=== PATIENT | male | born 1955 | race Caucasian/White ===

== ENCOUNTER 2017-12-29 13:42 | Outpatient (CLI) | payer MEDICARE, MEDICAID ==
[~2017-12-29 13:42] MED LIST: ALLOPURINOL100 M1 ORAL; ASPIRIN-LOW81 MG ORAL; BACLOFEN10 MG ORAL; CELEBREX50 M1 ORAL; DIOVAN HCT 1601 EACH ORAL; FLOMAX0.4 MG ORAL; FLONASE1 SPRAYS NASAL; NAPROSYN125 MG/5 M PO; OMEPRAZOLE20 M2 ORAL; TRAMADOL HCL E100 MG ORAL; TRAMADOL HCL50 MG ORAL; VESICARE10 MG ORAL; [UNRECOGNIZED DRUG - OTHER]
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
== END 2017-12-29 14:15 | disposition home or self-care (01) ==
LOC: PAN 13:42
DX: R19.7 Diarrhea, unspecified (principal); E66.9 Obesity, unspecified; Z68.39 Body mass index [BMI] 39.0-39.9, adult; Z79.82 Long term (current) use of aspirin; Z88.6 Allergy status to analgesic agent; I10 Essential (primary) hypertension; K21.9 Gastro-esophageal reflux disease without esophagitis; M51.36 Other intervertebral disc degeneration, lumbar region; M47.9 Spondylosis, unspecified
CPT/HCPCS: 99202

== ENCOUNTER 2018-01-31 09:35 | Outpatient (CLI) | payer MEDICARE, MEDICAID ==
[2018-01-31 10:12] VITALS: BP 130/87
[2018-01-31] MEDS ORDERED: NEW BP MED (10:14)
--- NOTE | 2018-01-31 10:59 | GI Progress Note ---
Assessment/Plan Problems: (1) IBS (irritable bowel syndrome) ICD Codes: K58.9 - Irritable bowel syndrome without diarrhea SNOMED: 84951448 (2) Diarrhea ICD Codes: R19.7 - Diarrhea, unspecified SNOMED: 48615794 (3) Obesity (BMI 30-39.9) ICD Codes: E66.9 - Obesity (BMI 30-39.9) SNOMED: 389483557 Status: stable Status Narrative Seen with Dr. Valdez. Assessment/Plan Increase Viberzi from daily to 100mg BID RTC x 1 month The patient was seen and examined at bedside and all new and available data was reviewed in the patients chart. I agree with the above findings, impression and plan. (Patient seen earlier today. Signature stamp does not reflect patient encounter time.). - Rashawn Valdez MD Subjective Subjective diarrhea, loose stool x 1 day taking Viberzi daily, no Imodium Objective Last 24 Hour Vital Signs Date Time Temp Pulse Resp B/P (MAP) Pulse Ox O2 Delivery O2 Flow Rate FiO2 01/31/18 10:12 98.0 87 22 130/87 93 98.0 General Appearance: WD/WN, no apparent distress, alert Cardiovascular: normal rate Respiratory/Chest: normal breath sounds, no respiratory distress Abdominal Exam: normal bowel sounds, non tender, soft Extremities: normal range of motion, non-tender Sybil Reveles [employer]T PERFORMER Jan 31, 2018 10:59
== END 2018-01-31 10:07 | disposition home or self-care (01) ==
LOC: PAN 09:35
DX: K58.9 Irritable bowel syndrome, unspecified (principal); R19.7 Diarrhea, unspecified; E66.9 Obesity, unspecified
CPT/HCPCS: 99212

== ENCOUNTER 2018-05-25 14:19 | Outpatient (CLI) | payer MEDICARE, MEDICAID ==
[~2018-05-25 14:19] MED LIST changes: +NEW BP MED
[2018-05-25 14:38] VITALS: BP 119/78
--- NOTE | 2018-05-26 15:16 | GI Progress Note ---
Assessment/Plan Problems: (1) IBS (irritable bowel syndrome) ICD Codes: K58.9 - Irritable bowel syndrome without diarrhea SNOMED: 72234549 (2) Diarrhea ICD Codes: R19.7 - Diarrhea, unspecified SNOMED: 59352064 (3) Chronic NSAIDS use (4) GERD (gastroesophageal reflux disease) ICD Codes: K21.9 - GERD (gastroesophageal reflux disease) SNOMED: 921473360 Status: stable Status Narrative Seen with Dr. Valdez. Assessment/Plan cont Viberzi RTC x 3 months repeat colonoscopy 2019. The patient was seen and examined at bedside and all new and available data was reviewed in the patients chart. I agree with the above findings, impression and plan. (Patient seen earlier today. Signature stamp does not reflect patient encounter time.). - Rashawn Valdez MD Subjective Subjective constipation vs diarrhea >> has regular BM, on Viberzi 100mg x2/day Objective T 97.8 BP 119/78 P 87 95 RA General Appearance: WD/WN, no apparent distress, alert Cardiovascular: normal rate Respiratory/Chest: normal breath sounds, no respiratory distress Abdominal Exam: normal bowel sounds, non tender, soft Extremities: normal range of motion, non-tender Sybil Reveles NOTEMAN May 26, 2018 15:16
== END 2018-05-25 14:49 | disposition home or self-care (01) ==
LOC: PAN 14:19
DX: K58.9 Irritable bowel syndrome, unspecified (principal); R19.7 Diarrhea, unspecified; K21.9 Gastro-esophageal reflux disease without esophagitis; Z79.1 Long term (current) use of non-steroidal anti-inflammatories (NSAID)
CPT/HCPCS: 99212

== ENCOUNTER 2019-04-09 13:13 | Outpatient (CLI) | payer MEDICARE, MEDICAID ==
--- NOTE | 2019-04-09 13:33 | General Progress Note ---
Assessment/Plan Problem List: (1) Chronic NSAIDS use (2) IBS (irritable bowel syndrome) ICD Codes: K58.9 - Irritable bowel syndrome without diarrhea SNOMED: 11154872 (3) GERD (gastroesophageal reflux disease) ICD Codes: K21.9 - GERD (gastroesophageal reflux disease) SNOMED: 897451319 (4) Diarrhea ICD Codes: R19.7 - Diarrhea, unspecified SNOMED: 91385409 (5) Obesity (BMI 30-39.9) ICD Codes: E66.9 - Obesity (BMI 30-39.9) SNOMED: 365299686 (6) HTN (hypertension) ICD Codes: I10 - HTN (hypertension) SNOMED: 56023022 (7) Gout ICD Codes: M10.9 - Gout SNOMED: 85955652 Assessment/Plan: refill viberzi plan repeat colonoscopy in Jul 2019 Subjective ROS Limited/Unobtainable: Yes Allergies: Coded Allergies: CODEINE (Unverified Allergy, Mild, 07/02/14) ANXIETY Objective General Appearance: alert EENT: normal ENT inspection Neck: supple Cardiovascular: normal rate Respiratory/Chest: lungs clear Abdomen: normal bowel sounds, non tender, soft Extremities: non-tender Rashawn Valdez MD Apr 09, 2019 13:33
[2019-04-09] MEDS ORDERED: LOSARTAN POTASS25 MG ORAL (15:42)
[2019-04-09] MEDS ORDERED: AMLODIPINE BESYL5 MG ORAL (15:42)
[2019-04-09] MEDS ORDERED: VITAMIN B COMP1 EAC2 ORAL (15:42)
[2019-04-09] MEDS ORDERED: VITAMIN C500 M1 ORAL (15:42)
[2019-04-09] MEDS ORDERED: OMEPRAZOLE40 M1 ORAL (15:42)
[2019-04-09] MEDS ORDERED: VITAMIN B122500 MCG PO (15:42)
[2019-04-09] MEDS ORDERED: ABILIFY15 MG ORAL (15:42)
[2019-04-09] MEDS ORDERED: VITAMIN D1000 UNI1 ORAL (15:42)
[2019-04-09] MEDS ORDERED: OLANZAPINE ODT10 MG PO (15:42)
[2019-04-09] MEDS ORDERED: CYMBALTA60 MG ORAL (15:42)
[2019-04-09] MEDS ORDERED: GEMFIBROZIL600 MG ORAL (15:42)
[2019-04-09] MEDS ORDERED: CRESTOR10 M2 ORAL (15:42)
[2019-04-09] MEDS ORDERED: METFORMIN HCL1000 M1 ORAL (15:42)
[2019-04-09 15:44] VITALS: BP 120/77
[2019-04-09] MEDS ORDERED: VIBERZI100 MG PO (15:44)
== END 2019-04-09 15:47 | disposition home or self-care (01) ==
LOC: PAN 13:13
DX: K58.9 Irritable bowel syndrome, unspecified (principal); K21.9 Gastro-esophageal reflux disease without esophagitis; R19.7 Diarrhea, unspecified; E66.9 Obesity, unspecified; I10 Essential (primary) hypertension; M10.9 Gout, unspecified; Z88.6 Allergy status to analgesic agent; Z79.1 Long term (current) use of non-steroidal anti-inflammatories (NSAID)

== ENCOUNTER 2019-09-10 10:26 | Day surgery (SDC) | payer MEDICARE, MEDICAID ==
[~2019-09-10] VITALS: Ht 182.9 cm; Wt 119.7 kg
--- NOTE | 2019-09-10 10:23 | Anethesia Preoperative Eval ---
Anesthesia Pre-op PMH/ROS General Date of Evaluation: Sep 10, 2019 Anesthesiologist: Myles ASA Score: ASA 3 Mallampati Score Class I : Soft palate, uvula, fauces, pillars visible Class II: Soft palate, uvula, fauces visible Class III: Soft palate, base of uvula visible Class IV: Only hard plate visible Mallampati Classification: Class III Surgeon: Courtney Diagnosis: screening Surgical Procedure: colonoscopy Anesthesia History: none Family History: no anesthesia problems Allergies: Coded Allergies: CODEINE (Unverified Allergy, Mild, 07/02/14) ANXIETY Medications: see eMAR Patient NPO?: Yes NPO Date: Sep 10, 2019 NPO Time: 00:00 Past Medical History Cardiovascular: Reports: HTN; Denies: CAD, RI, valve dz, arrhythmia, other Pulmonary: Reports: MANDIE - uses CPAP at home; Denies: asthma, COPD, other Gastrointestinal/Genitourinary: Reports: GERD; Denies: CRI, ESRD, other Neurologic/Psychiatric: Reports: depression/anxiety; Denies: dementia, CVA, TIA, other Endocrine: Denies: DM, hypothyroidism, steroids, other HEENT: Denies: cataract (L), cataract (R), glaucoma, [place] (L), [place] (R), other Hematology/Immune: Reports: DVT; Denies: anemia, bleeding disorder, other Musculoskeletal/Integumentary: Reports: DJD, other - gout, lbp; Denies: OA, RA, DDD, edema Other: obesity PSxH Narrative: T&A, tib-fib sx Anesthesia Pre-op Phys. Exam Physician Exam see chart Constitutional: NAD Cardiovascular: RRR Respiratory: CTA Airway Exam Mallampati Score: Class II MO: full ROM: full Anesthesia Pre-op A/P Labs see chart Studies Pre-op Studies: EKG - sr wsith 1st degree av block Risk Assessment & Plan Assessment: asa III Plan: MAC Status Change Before Surgery: No Pre-Antibiotics Drug: N/A Yamileth Lbelanc MD Sep 10, 2019 10:23
[~2019-09-10 10:26] MED LIST changes: +ABILIFY15 MG ORAL; +AMLODIPINE BESYL5 MG ORAL; +CRESTOR10 M2 ORAL; +CYMBALTA60 MG ORAL; +GEMFIBROZIL600 MG ORAL; +LOSARTAN POTASS25 MG ORAL; +LR 1000ml 1,000 ML IVLG SCH; +METFORMIN HCL1000 M1 ORAL; +OLANZAPINE ODT10 MG PO; +OMEPRAZOLE40 M1 ORAL; +VIBERZI100 MG PO; +VITAMIN B COMP1 EAC2 ORAL; +VITAMIN B122500 MCG PO; +VITAMIN C500 M1 ORAL; +VITAMIN D1000 UNI1 ORAL
[2019-09-10] MEDS ORDERED: LR 1000ml 1,000 ML IVLG SCH (10:36)
[2019-09-10] MEDS ORDERED: DiphenhydrAMINE 50mg/ml Inj IVP PRN (10:45)
[2019-09-10 12:26] VITALS: BP 146/80
--- NOTE | 2019-09-10 12:42 | Pre-Procedure Note/Attestation ---
Pre-Procedure Note/Attestation Complete Prior to Procedure Planned Procedure: not applicable Procedure Narrative: colonoscopy Indications for Procedure Pre-Operative Diagnosis: screening Attestation I attest that I discussed the nature of the procedure; its benefits; risks and complications; and alternatives (and the risks and benefits of such alternatives ), prior to the procedure, with the patient (or the patient's legal operations representative). I attest that, if there was a reasonable possibility of needing a blood transfusion, the patient (or the patient's legal operations representative) was given the [facility] standardized written summary, pursuant to the [place]om[place] Blood Safety Act ([place] Health and Safety Code # 1645, as amended). I attest that I re-evaluated the patient just prior to the surgery and that there has been no change in the patient's H&P, except as documented below: Rashawn Valdez MD Sep 10, 2019 12:42
--- NOTE | 2019-09-10 12:43 | Short Stay Surgery H&P ---
History of Present Illness History of Present Illness Chief Complaint screening colon HPI Fausto Mathews is a 64 year old male who was admitted on for Screening Colon Patient History Allergies: Coded Allergies: CODEINE (Unverified Allergy, Mild, 07/02/14) ANXIETY PAST MEDICAL HISTORY: (1) Chronic NSAIDS use (2) Obesity (BMI 30-39.9) (3) IBS (irritable bowel syndrome) (4) HTN (hypertension) (5) GERD (gastroesophageal reflux disease) (6) Diarrhea (7) Gout (8) Lumbar disc disease (9) Gastritis Medication History Scheduled Allopurinol* (Allopurinol*), 100 MG ORAL DAILY, (Reported) Amlodipine Besylate* (Amlodipine Besylate*), 5 MG ORAL DAILY, (Reported) Aripiprazole* (Abilify*), 30 MG ORAL DAILY, (Reported) Ascorbic Acid* (Vitamin C*), 500 MG ORAL DAILY, (Reported) Aspirin (Aspirin EC), 81 MG ORAL DAILY, (Reported) Cholecalciferol (Vitamin D3)* (Vitamin D*), 1,000 UNIT ORAL DAILY, (Reported) Cyanocobalamin (Vitamin B-12) (Vitamin B12), 2,500 MCG PO DAILY, (Reported) Duloxetine Hcl* (Cymbalta*), 60 MG ORAL DAILY, (Reported) Eluxadoline (Viberzi), 100 MG PO BID, (Reported) Fluticasone Propionate (Fluticasone Propionate), 2 SPRAYS NASAL DAILY, (Reported ) Gemfibrozil (Gemfibrozil*), 600 MG ORAL BID, (Reported) Losartan Potassium* (Losartan Potassium*), 25 MG ORAL DAILY, (Reported) Metformin Hcl* (Metformin Hcl*), 1,000 MG ORAL BID, (Reported) Olanzapine (Olanzapine Odt), 10 MG PO QHS, (Reported) Omeprazole (Omeprazole), 40 MG ORAL DAILY, (Reported) Rosuvastatin Calcium* (Crestor*), 10 MG ORAL DAILY, (Reported) Solifenacin Succinate (Vesicare*), 10 MG ORAL DAILY, (Reported) Tamsulosin HCl (Flomax), 0.4 MG ORAL DAILY, (Reported) Vitamin B Complex (Vitamin B Complex), 1 CAP ORAL DAILY, (Reported) Review of Systems Cardiovascular: Reports: no symptoms Respiratory: Reports: no symptoms Skeletal: Reports: no symptoms Gastrointestinal: Reports: no symptoms Genitourinary: Reports: no symptoms Neurologic: Reports: no symptoms Endocrine: Reports: no symptoms Physical Exam Vital Signs Last Vital Signs Date Time Temp Pulse Resp B/P (MAP) Pulse Ox O2 Delivery O2 Flow Rate FiO2 09/10/19 12:29 Room Air 09/10/19 12:26 97.7 63 18 146/80 96 Skin: normal HENT: normal Heart: normal Lungs: normal Abdomen: normal Extremities: normal Plan Plan of Care colonoscopy Attestation Are the patient's medical conditions optimized for surgery? Attestation Response: yes Rashawn Valdez MD Sep 10, 2019 12:43
--- NOTE | 2019-09-10 12:43 | Short Stay Surgery H&P ---
History of Present Illness History of Present Illness Chief Complaint see recent office note HPI Fausto Mathews is a 64 year old male who was admitted on for Screening Colon Patient History Allergies: Coded Allergies: CODEINE (Unverified Allergy, Mild, 07/02/14) ANXIETY Medication History Scheduled Allopurinol* (Allopurinol*), 100 MG ORAL DAILY, (Reported) Amlodipine Besylate* (Amlodipine Besylate*), 5 MG ORAL DAILY, (Reported) Aripiprazole* (Abilify*), 30 MG ORAL DAILY, (Reported) Ascorbic Acid* (Vitamin C*), 500 MG ORAL DAILY, (Reported) Aspirin (Aspirin EC), 81 MG ORAL DAILY, (Reported) Cholecalciferol (Vitamin D3)* (Vitamin D*), 1,000 UNIT ORAL DAILY, (Reported) Cyanocobalamin (Vitamin B-12) (Vitamin B12), 2,500 MCG PO DAILY, (Reported) Duloxetine Hcl* (Cymbalta*), 60 MG ORAL DAILY, (Reported) Eluxadoline (Viberzi), 100 MG PO BID, (Reported) Fluticasone Propionate (Fluticasone Propionate), 2 SPRAYS NASAL DAILY, (Reported ) Gemfibrozil (Gemfibrozil*), 600 MG ORAL BID, (Reported) Losartan Potassium* (Losartan Potassium*), 25 MG ORAL DAILY, (Reported) Metformin Hcl* (Metformin Hcl*), 1,000 MG ORAL BID, (Reported) Olanzapine (Olanzapine Odt), 10 MG PO QHS, (Reported) Omeprazole (Omeprazole), 40 MG ORAL DAILY, (Reported) Rosuvastatin Calcium* (Crestor*), 10 MG ORAL DAILY, (Reported) Solifenacin Succinate (Vesicare*), 10 MG ORAL DAILY, (Reported) Tamsulosin HCl (Flomax), 0.4 MG ORAL DAILY, (Reported) Vitamin B Complex (Vitamin B Complex), 1 CAP ORAL DAILY, (Reported) Physical Exam Vital Signs Last Vital Signs Date Time Temp Pulse Resp B/P (MAP) Pulse Ox O2 Delivery O2 Flow Rate FiO2 09/10/19 12:29 Room Air 09/10/19 12:26 97.7 63 18 146/80 96 Plan Attestation Are the patient's medical conditions optimized for surgery? Rashawn Valdez MD Sep 10, 2019 12:43
[2019-09-10] MEDS ORDERED: LR 1000ml ONE (13:00)
[2019-09-10] MEDS ORDERED: Lidocaine 1% MPF 10mg/ml 5ml ONE (13:00)
[2019-09-10] MEDS ORDERED: Propofol 200mg/20ml IV ONE (13:00)
--- NOTE | 2019-09-10 13:10 | Endoscopy Procedure Note ---
Endoscopy Procedure Note General Indication for Procedure: screening Procedures Performed: colonoscopy Operative Findings/Diagnosis: hemorrhoids Specimen: yes Pt Tolerated Procedure Well: Yes Estimated Blood Loss: none Anesthesia Anesthesiologist: nae Anesthesia: MAC Inserted Devices Implant(s) used?: No Quality Quality of Bowel Preparation: Good Did scope reach the cecum?: Yes Was there any complications?: No GI Core Measures 50 yrs or older w/o bx or poly: No 10yrs. F/U recommended: Yes If not recommended, why?: Above average risk 18 years or older w/prev. colo: Yes <3yrs. since last colonoscopy: No Rashawn Valdez MD Sep 10, 2019 13:10
[2019-09-10 13:30] VITALS: BP 134/90
--- NOTE | 2019-09-10 13:34 | Immediate Post-Op Evaluation ---
Immediate Post-Op Evalulation Immediate Post-Op Evalulation Procedure: colonoscopy Date of Evaluation: Sep 10, 2019 Time of Evaluation: 13:35 IV Fluids: 300 Blood Products: 0 Estimated Blood Loss: 0 Urinary Output: 0 Blood Pressure Systolic: 134 Blood Pressure Diastolic: 90 Pulse Rate: 73 Respiratory Rate: 16 O2 Sat by Pulse Oximetry: 98 Temperature (Fahrenheit): 97.8 Pain Score (1-10): 0 Nausea: No Vomiting: No Complications 0 Patient Status: awake, reacts, patent, none Hydration Status: adequate Drug: N/A Yamileth Leblanc MD Sep 10, 2019 13:34
[2019-09-10 13:35] VITALS: BP 134/82
--- NOTE | 2019-09-10 13:35 | 48 Hour Post Anesthesia Eval ---
Post Anesthesia Evaluation Procedure: colonoscopy Date of Evaluation: Sep 10, 2019 Airway: patent Nausea: No Vomiting: No Pain Intensity: 0 Hydration Status: adequate Cardiopulmonary Status: at baseline Mental Status/LOC: patient returned to baseline Post-Anesthesia Complications: 0 Follow-up care needed: ready to discharge Yamileth Leblanc MD Sep 10, 2019 13:35
[2019-09-10 13:40] VITALS: BP 133/84
[2019-09-10 13:45] VITALS: BP 128/84
[2019-09-10 14:20] VITALS: BP_SYST 140; BP_SYST 147; BP_DIAS 87; BP_DIAS 92
--- NOTE | 2019-09-10 16:00 | Procedure Note ---
DATE OF PROCEDURE: 09/10/2019 SURGEON: Rashawn Valdez M.D. PROCEDURE: Colonoscopy. ANESTHESIA: Per Dr. Bueno. INSTRUMENT: Olympus adult flexible colonoscope. INDICATION: History of colonic polyps, referred for repeat colonoscopy. REASON FOR PROCEDURE: The procedure, risks, benefits, and possible consequences, including hemorrhage, aspiration, perforation and infection, and alternative treatments, were explained to the patient/legal guardian by Dr. Rashawn Valdez and the patient/legal guardian understood and accepted these risks. DESCRIPTION OF PROCEDURE: After informed consent was obtained and the patient was adequately sedated, first rectal exam was performed, which was normal. Then, the scope was advanced from the rectum into the cecum documented by appendiceal orifice, ileocecal valve, and right upper quadrant on palpation. Quality of her was okay except for the cecum, which was covered with the stool, so examination of cecum was limited. We did not see any obvious polyp in this examination. The patient had evidence of redundant sigmoid colon. No obvious mass, diverticulosis, or any pathology seen. Retroflexion of rectum showed evidence of internal hemorrhoids. SUMMARY OF FINDINGS: 1. Good colonoscopy prep except for the cecum. 2. No obvious polyp seen in this colonoscopy examination. 3. Internal hemorrhoids. 4. Redundant sigmoid colon. RECOMMENDATIONS: Recommend repeat colonoscopy in 5 years. Rashawn Valdez M.D. DR: EDI JOB#: [id number] CC:
== END 2019-09-10 14:20 | disposition home or self-care (01) ==
LOC: GAS 10:26
DX: Z12.11 Encounter for screening for malignant neoplasm of colon (principal); I10 Essential (primary) hypertension; K21.9 Gastro-esophageal reflux disease without esophagitis; M51.36 Other intervertebral disc degeneration, lumbar region; Z79.82 Long term (current) use of aspirin; Z79.899 Other long term (current) drug therapy; Z88.6 Allergy status to analgesic agent; Z79.84 Long term (current) use of oral hypoglycemic drugs; G47.33 Obstructive sleep apnea (adult) (pediatric); F32.9 Major depressive disorder, single episode, unspecified; F41.9 Anxiety disorder, unspecified; E66.9 Obesity, unspecified; I44.0 Atrioventricular block, first degree
CPT/HCPCS: 82962; 93005; G0121; J2704; J7120; 94003; 94150

== ENCOUNTER 2019-09-26 14:25 | Outpatient (CLI) | payer MEDICARE, MEDICAID ==
[~2019-09-26 14:25] MED LIST changes: -LR 1000ml 1,000 ML IVLG SCH
--- NOTE | 2019-09-26 14:51 | General Progress Note ---
Assessment/Plan Problem List: (1) Chronic NSAIDS use (2) Obesity (BMI 30-39.9) ICD Codes: E66.9 - Obesity (BMI 30-39.9) SNOMED: 744195635 (3) IBS (irritable bowel syndrome) ICD Codes: K58.9 - Irritable bowel syndrome without diarrhea SNOMED: 91115122 (4) HTN (hypertension) ICD Codes: I10 - HTN (hypertension) SNOMED: 51435758 (5) GERD (gastroesophageal reflux disease) ICD Codes: K21.9 - GERD (gastroesophageal reflux disease) SNOMED: 926607848 (6) Gastritis ICD Codes: K29.70 - Gastritis SNOMED: 4156028 (7) Diarrhea ICD Codes: R19.7 - Diarrhea, unspecified SNOMED: 44865470 (8) Gout ICD Codes: M10.9 - Gout SNOMED: 00597484 (9) Internal hemorrhoids ICD Codes: K64.8 - Internal hemorrhoids SNOMED: 81738934 Assessment/Plan: SUMMARY OF FINDINGS: 1. Good colonoscopy prep except for the cecum. 2. No obvious polyp seen in this colonoscopy examination. 3. Internal hemorrhoids. 4. Redundant sigmoid colon. cont viberzi QOD Subjective ROS Limited/Unobtainable: Yes Allergies: Coded Allergies: CODEINE (Unverified Allergy, Mild, 07/02/14) ANXIETY Objective General Appearance: alert EENT: normal ENT inspection Neck: supple Cardiovascular: normal rate Respiratory/Chest: lungs clear Abdomen: normal bowel sounds, non tender, soft Extremities: non-tender Rashawn Valdez MD Sep 26, 2019 14:51
== END 2019-09-26 16:25 | disposition home or self-care (01) ==
LOC: PAN 14:25
DX: K58.9 Irritable bowel syndrome, unspecified (principal); E66.9 Obesity, unspecified; I10 Essential (primary) hypertension; K21.9 Gastro-esophageal reflux disease without esophagitis; K29.70 Gastritis, unspecified, without bleeding; R19.7 Diarrhea, unspecified; M10.9 Gout, unspecified; K64.8 Other hemorrhoids; Z79.1 Long term (current) use of non-steroidal anti-inflammatories (NSAID)
CPT/HCPCS: 99212